=== PATIENT | male | born 2000 | race African-American/Black ===

== ENCOUNTER 2021-05-26 22:40 | Emergency (ER) | payer SELFPAY ==
[2021-05-26] MEDS ORDERED: Sodium Chloride 0.9% 1000 ML 1,000 ML IV STA (23:21)
--- NOTE | 2021-05-26 23:21 | ERPHSYRPT ---
- History of Present Illness Time Seen by Provider: 05/26/21 23:21 Source: patient Exam Limitations: no limitations Physician History: This is a 20-year-old -[place] male who presents with 2-day history of a sudden onset of cough cold congestion. He has no known exposure to anyone with known COVID-19 infection. He has no chest pain. He has mild shortness of breath with coughing episodes. He has some myalgias and arthralgias. He has no nausea vomiting or diarrhea. Timing/Duration: day(s) (2) Cough Quality/Degree: mild (To moderate), dry cough Possible Cause: no prior episodes Modifying Factors: Improves With: coughing Associated Symptoms: cough, muscle aches Allergies/Adverse Reactions: No Known Drug Allergies Allergy (Unverified 05/26/21 23:22) Travel Risk - International Travel Have you traveled outside of the country in past 3 weeks: No - Coronavirus Screening Are you exhibiting any of the following symptoms?: Yes Symptoms: Fever, Headaches/Body Aches/Fatigue Close contact with a COVID-19 positive Pt in past 14-21 Days: No - Review of Systems Constitutional: No Symptoms Eyes: No Symptoms Ears, Nose, & Throat: Nose Congestion, Throat Pain Respiratory: Cough Cardiac: No Symptoms, No Chest Pain Abdominal/Gastrointestinal: No Symptoms Genitourinary Symptoms: No Symptoms Musculoskeletal: No Symptoms, Arthralgias, Myalgias Skin: No Symptoms Neurological: No Symptoms Psychological: No Symptoms Endocrine: No Symptoms Hematologic/Lymphatic: No Symptoms Immunological/Allergic: No Symptoms All Other Systems: Reviewed and Negative - Past Medical History Pertinent Past Medical History: Yes - Past Surgical History Past Surgical History: Yes - Nursing Vital Signs Nursing Vital Signs: Initial Vital Signs Temperature 97.1 F 05/26/21 23:25 Pulse Rate 69 05/26/21 23:25 Respiratory Rate 20 05/26/21 23:25 Blood Pressure 124/85 05/26/21 23:25 O2 Sat by Pulse Oximetry 97 05/26/21 23:25 Pain Scale Pain Intensity 0 - Physical Exam General Appearance: no apparent distress, alert, anxiety, obese Eye Exam: PERRL/EOMI, eyes nml inspection Ears, Nose, Throat Exam: normal ENT inspection, moist mucous membranes Neck Exam: normal inspection, non-tender, supple, full range of motion Respiratory Exam: normal breath sounds, lungs clear, airway intact, No chest tenderness, No respiratory distress Cardiovascular Exam: regular rate/rhythm, normal heart sounds, normal peripheral pulses Gastrointestinal/Abdomen Exam: soft, normal bowel sounds, No tenderness Rectal Exam: not done Back Exam: normal inspection, normal range of motion, No CVA tenderness, No vertebral tenderness Extremity Exam: normal inspection, normal range of motion, pelvis stable Neurologic Exam: alert, oriented x 3, cooperative, 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 nml as tested, normal mood/affect, nml cerebellar function, nml station & gait, sensation nml Skin Exam: normal color, warm, dry Lymphatic Exam: No adenopathy SpO2 Interpretation: normal O2 Delivery: Room Air - Course Nursing assessment & vital signs reviewed: Yes Ordered Tests: Active Orders 24 hr Category Date Time Status Electronic Technologist STAT Care 05/26/21 23:22 Active EKG-ER Only STAT Care 05/26/21 23:21 Active IV Insertion STAT Care 05/26/21 23:21 Active Isolation, Initiate & Maintain STAT Care 05/26/21 23:22 Active CHEST 1 VIEW (PORTABLE) Stat Exams 05/26/21 23:22 Taken BLOOD CULTURE Stat Lab 05/26/21 23:45 Ordered CBC W DIFF Stat Lab 05/26/21 23:45 Completed CMP Stat Lab 05/26/21 23:45 Completed D-DIMER QUANTITATIVE Stat Lab 05/26/21 23:45 Completed Ferritin Stat Lab 05/26/21 23:45 Completed INFLUENZA A+B IJEOMA Stat Lab 05/26/21 23:22 Completed LDH-LACTATE DEHYDROGENASE Stat Lab 05/26/21 23:45 Completed Lactic Acid Stat Lab 05/26/21 23:36 Completed [place] Screen Stat Lab 05/26/21 23:45 Completed TROPONIN Q3H Lab 05/26/21 23:45 Completed TROPONIN Q3H Lab 05/27/21 02:30 Ordered TROPONIN Q3H Lab 05/27/21 05:30 Ordered TROPONIN Q3H Lab 05/27/21 08:30 Ordered TROPONIN Q3H Lab 05/27/21 11:30 Ordered UA W/RFX UR CULTURE Stat Lab 05/26/21 23:22 Ordered Medication Summary Discontinued Medications Generic Name Dose Route Start Last Admin Trade Name Freq PRN Reason Stop Dose Admin Methylprednisolone Sodium 0 mg 05/27/21 00:57 Succinate 125 mg/ Sterile IV 05/27/21 00:58 Water 2 ml STAT ONE Sodium Chloride 1,000 mls @ 999 mls/hr 05/26/21 23:21 Sodium Chloride 0.9% 1000 Ml IV 05/27/21 00:21 .Q1H1M STA Sodium Chloride Confirm 05/27/21 00:49 Sodium Chloride 0.9% 1000 Ml Administered 05/27/21 00:50 Dose 1,000 mls @ ud .ROUTE .STK-MED ONE Lab/Rad Data: Laboratory Result Diagrams 05/26/21 23:45 05/26/21 23:45 Laboratory Results 05/26/21 05/26/21 05/26/21 Range/Units 23:45 23:45 23:45 WBC (4.0-10.5) K/mm3 RBC (4.1-5.6) M/mm3 Hgb (12.5-18.0) gm/dl Hct (42-50) % MCV (78-100) fl MCH (26-32) pg MCHC (32-36) g/dl RDW (11.5-14.0) % Plt Count (150-450) K/mm3 MPV (7.5-11.0) fl Gran % (36.0-66.0) % Eos # (Auto) (0-0.5) Absolute Lymphs (auto) (1.0-4.6) Absolute Monos (auto) (0.0-1.3) Lymphocytes % (24.0-44.0) % Monocytes % (0.0-12.0) % Eosinophils % (0.00-5.0) % Basophils % (0.0-0.4) % Absolute Granulocytes (1.4-6.9) Basophils # (0-0.4) D-Dimer (215-500) ng/mL Sodium (137-145) mmol/L Potassium (3.5-5.1) mmol/L Chloride (98-107) mmol/L Carbon Dioxide (22-30) mmol/L Anion Gap (5-15) MEQ/L BUN (9-20) mg/dL Creatinine (0.66-1.25) mg/dL Estimated GFR ML/MIN Glucose (74-106) mg/dL Lactic Acid (0.4-2.0) Calcium (8.4-10.2) mg/dL Ferritin 64.0 (17.9-464) ng/mL Total Bilirubin (0.2-1.3) mg/dL AST (17-59) U/L ALT (0-50) U/L Alkaline Phosphatase (38-126) U/L Lactate Dehydrogenase (120-246) U/L Troponin I < 0.012 (0.000-0.034) ng/mL Serum Total Protein (6.3-8.2) g/dL Albumin (3.5-5.0) g/dL Monoscreen NEGATIVE (Negative) Influenza Type A Ag (NEGATIVE) Influenza Type B Ag (NEGATIVE) Group A Strep Antibody (NEGATIVE) 05/26/21 05/26/21 05/26/21 Range/Units 23:45 23:45 23:45 WBC 5.7 (4.0-10.5) K/mm3 RBC 5.14 (4.1-5.6) M/mm3 Hgb 15.0 (12.5-18.0) gm/dl Hct 44.9 (42-50) % MCV 87.4 (78-100) fl MCH 29.2 (26-32) pg MCHC 33.4 (32-36) g/dl RDW 14.4 H (11.5-14.0) % Plt Count 204 (150-450) K/mm3 MPV 11.1 H (7.5-11.0) fl Gran % 44.8 (36.0-66.0) % Eos # (Auto) 0.12 (0-0.5) Absolute Lymphs (auto) 1.95 (1.0-4.6) Absolute Monos (auto) 1.03 (0.0-1.3) Lymphocytes % 34.4 (24.0-44.0) % Monocytes % 18.2 H (0.0-12.0) % Eosinophils % 2.1 (0.00-5.0) % Basophils % 0.5 (0.0-0.4) % Absolute Granulocytes 2.54 (1.4-6.9) Basophils # 0.03 (0-0.4) D-Dimer 380 (215-500) ng/mL Sodium 135 L (137-145) mmol/L Potassium 3.8 (3.5-5.1) mmol/L Chloride 104 (98-107) mmol/L Carbon Dioxide 22 (22-30) mmol/L Anion Gap 12.8 (5-15) MEQ/L BUN 12 (9-20) mg/dL Creatinine 1.05 (0.66-1.25) mg/dL Estimated GFR > 60.0 ML/MIN Glucose 99 (74-106) mg/dL Lactic Acid (0.4-2.0) Calcium 9.2 (8.4-10.2) mg/dL Ferritin (17.9-464) ng/mL Total Bilirubin 0.60 (0.2-1.3) mg/dL AST 51 (17-59) U/L ALT 65 H (0-50) U/L Alkaline Phosphatase 71 (38-126) U/L Lactate Dehydrogenase 245 (120-246) U/L Troponin I (0.000-0.034) ng/mL Serum Total Protein 7.4 (6.3-8.2) g/dL Albumin 4.0 (3.5-5.0) g/dL Monoscreen (Negative) Influenza Type A Ag (NEGATIVE) Influenza Type B Ag (NEGATIVE) Group A Strep Antibody (NEGATIVE) 05/26/21 05/26/21 05/26/21 Range/Units 23:36 23:30 23:22 WBC (4.0-10.5) K/mm3 RBC (4.1-5.6) M/mm3 Hgb (12.5-18.0) gm/dl Hct (42-50) % MCV (78-100) fl MCH (26-32) pg MCHC (32-36) g/dl RDW (11.5-14.0) % Plt Count (150-450) K/mm3 MPV (7.5-11.0) fl Gran % (36.0-66.0) % Eos # (Auto) (0-0.5) Absolute Lymphs (auto) (1.0-4.6) Absolute Monos (auto) (0.0-1.3) Lymphocytes % (24.0-44.0) % Monocytes % (0.0-12.0) % Eosinophils % (0.00-5.0) % Basophils % (0.0-0.4) % Absolute Granulocytes (1.4-6.9) Basophils # (0-0.4) D-Dimer (215-500) ng/mL Sodium (137-145) mmol/L Potassium (3.5-5.1) mmol/L Chloride (98-107) mmol/L Carbon Dioxide (22-30) mmol/L Anion Gap (5-15) MEQ/L BUN (9-20) mg/dL Creatinine (0.66-1.25) mg/dL Estimated GFR ML/MIN Glucose (74-106) mg/dL Lactic Acid 1.0 (0.4-2.0) Calcium (8.4-10.2) mg/dL Ferritin (17.9-464) ng/mL Total Bilirubin (0.2-1.3) mg/dL AST (17-59) U/L ALT (0-50) U/L Alkaline Phosphatase (38-126) U/L Lactate Dehydrogenase (120-246) U/L Troponin I (0.000-0.034) ng/mL Serum Total Protein (6.3-8.2) g/dL Albumin (3.5-5.0) g/dL Monoscreen (Negative) Influenza Type A Ag NEGATIVE (NEGATIVE) Influenza Type B Ag NEGATIVE (NEGATIVE) Group A Strep Antibody NOT DETECTED (NEGATIVE) - Progress Progress: improved Air Movement: good Progress Note: 05/27/21 01:02 Chest x-ray shows no acute cardiopulmonary process. Blood Culture(s) Obtained: No Antibiotics given: No Counseled pt/family regarding: lab results, diagnosis, need for follow-up, rad results - Departure Departure Disposition: Home Clinical Impression: Viral illness Condition: Stable Critical Care Time: No Additional Instructions: Drink plenty of fluids. Quarantine yourself until you get the results of your COVID-19 test back. Take your medication as prescribed. Prescriptions: Hydrocodone/Acetaminophen [Hydrocodone-Acetamn 7.5-325/15] 10 ml PO Q8H PRN PRN #120 ml MDD 30 ml PRN Reason: Cough Prednisone 10 mg [Deltasone 10 mg] 10 mg PO TID #12 tablet
[2021-05-26 23:54] LABS: Absolute Neutrophil Ct (ANC) 2.54 (1.4-6.9); Basophil (Absolute #) 0.03 (0-0.4); Eosinophil % 2.1 % (0.00-5.0); Eosinophil (Absolute #) 0.12 (0-0.5); Hematocrit 44.9 % (42-50); Lymphocyte (Absolute #) 1.95 (1.0-4.6); Lymphocytes % 34.4 % (24.0-44.0); Mean Cell Volume 87.4 fl (78-100); Mean Corpuscular Hemoglobin 29.2 pg (26-32); Mean Corpuscular Hgb Concent. 33.4 g/dl (32-36); Mean Platelet Volume 11.1 fl (7.5-11.0); Monocyte (Absolute #) 1.03 (0.0-1.3); Monocytes % 18.2 % (0.0-12.0); Neutrophil % 44.8 % (36.0-66.0); Platelet Count 204 K/mm3 (150-450); Red Blood Count 5.14 M/mm3 (4.1-5.6); Red Cell Distribution Width 14.4 % (11.5-14.0); White Blood Count 5.7 K/mm3 (4.0-10.5)
[2021-05-27] LABS: ALKALINE PHOSPHATASE 71 U/L (38-126); ANION GAP 12.8 MEQ/L (5-15); BLOOD UREA NITROGEN 12 mg/dL (9-20); CHLORIDE 104 mmol/L (98-107); Calcium 9.2 mg/dL (8.4-10.2); Carbon Dioxide 22 mmol/L (22-30); Creatinine 1 1.05 mg/dL (0.66-1.25); EST GLOMERULAR FILTRATION RATE > 60.0 ML/MIN; Glucose 99 mg/dL (74-106); LDH-LACTATE DEHYDROGENASE 245 U/L (120-246); Potassium 3.8 mmol/L (3.5-5.1); SGOT/AST 51 U/L (17-59); SGPT/ALT 65 U/L (0-50); SODIUM 135 mmol/L (137-145); Total Protein 7.4 g/dL (6.3-8.2)
[2021-05-27 00:08] LABS: INFLUENZA A NEGATIVE (NEGATIVE); INFLUENZA B NEGATIVE (NEGATIVE)
[2021-05-27] MEDS ORDERED: Sodium Chloride 0.9% 1000 ML 0 ML ONE (00:49)
[2021-05-27 00:56] VITALS: O2SAT 98
[2021-05-27] MEDS ORDERED: solu-MEDROL 125 MG, Sterile H2O 10 ml 2 ML IV ONE ×2 (00:57)
[2021-05-27] MEDS ORDERED: HYDROCODONE-ACETAMIN 2.5-108/5 ML SOLUTION PO STA (00:58)
[2021-05-27] MEDS ORDERED: solu-MEDROL ONE (00:58)
[2021-05-27] MEDS ORDERED: Sodium Chloride 0.9% 1000 ML 1,000 ML ONE (00:58)
[2021-05-27] MEDS ORDERED: HYDROCODONE-ACETAMIN 2.5-108/5 ML SOLUTION ONE (01:42)
[2021-05-27 02:16] VITALS: BP 142/94; PULSE 76
--- NOTE | 2021-05-27 08:49 | XRAY ---
Indication: Fever and cough. Comparison: None Portable apical lordotic chest demonstrates normal heart, lungs, and bony thorax.
== END 2021-05-27 02:16 | disposition home or self-care (01) ==
LOC: ED 22:40
DX: B34.9 Viral infection, unspecified (principal); R05.9 Cough, unspecified; R09.81 Nasal congestion; R06.02 Shortness of breath; M79.10 Myalgia, unspecified site; Z79.891 Long term (current) use of opiate analgesic; Z79.52 Long term (current) use of systemic steroids
CPT/HCPCS: 36000; 36415; 71045; 80053; 82728; 83605; 83615; 84484; 85025; 85379; 86308; 87040; 87400; 87651; 93005; 93041; 96374; 99284; U0003; J2930; A9270-GY

== ENCOUNTER 2023-03-03 20:11 | Observation (INO) | payer OTHER ==
[2023-03-03] MEDS ORDERED: solu-MEDROL 125 MG, Sterile H2O 10 ml 2 ML IV ONE ×2 (20:18)
[2023-03-03] MEDS ORDERED: BRETHINE 1 MG/ML SQ ONE (20:18)
[2023-03-03] MEDS ORDERED: DUONEB 0.5-3 MG/3 ml Neb IH ONE (20:20)
[2023-03-03] MEDS ORDERED: Magnesium 1 Gm / 100 Ml D5W*** 100 ML IV ONE ×2 (20:31→21:20)
[2023-03-03] MEDS ORDERED: solu-MEDROL ONE (20:31)
[2023-03-03] MEDS ORDERED: Sterile H2O 10 ml IJ ONE (20:31)
[2023-03-03] MEDS ORDERED: BRETHINE 1 MG/ML ONE (20:31)
[2023-03-03] MEDS: Magnesium 1 Gm / 100 Ml D5W*** 100 ML IV SCH ×2 (20:33→21:21)
--- NOTE | 2023-03-03 20:36 | ERPHSYRPT ---
- History of Present Illness Time Seen by Provider: 03/03/23 20:25 Source: patient Exam Limitations: no limitations Patient Subjective Stated Complaint: pt has hx of asthma, pt has been having episodes of shortness of breath for the past month but tonight within the last h our pt become extremely short of breath per fiance Triage Nursing Assessment: pt ambulatory to bed by self, pt alert and oriented x3, skin color appropriate for race, warm, and diaphoretic, pt RR was around 32 and O2 sat was 89-90% on RA, pt has hx of asthma, pt does not having nebulizers or inhalers at home. Physician History: Patient is a 22-year-old -[place] male presents to our ED for evaluation of shortness of breath. Due to patient's condition HPI is provided by his significant other. She reports patient has a history of asthma. Patient symptoms started approximately 3 weeks ago. Symptoms have gotten worse over the past day. Patient does not have a rescue inhaler at home. He does not have a primary care doctor. No other significant past medical history. Symptoms have been rapidly progressive over the past day. No specific worsening or improving factors. No associated chest pain. No nausea vomiting or diaphoresis. No fever. No rash. Significant other voices no other complaints or concerns at this time. Portions of this note were created with voice recognition technology. There may be grammatical, spelling, punctuation or sound alike errors Timing/Duration: week(s) (3 weeks) Activities at Onset: none Severity of Dyspnea-Max: severe Severity of Dyspnea-Current: moderate Possible Cause: unknown cause Modifying Factors: Improves With: nothing Associated Symptoms: wheezing Allergies/Adverse Reactions: No Known Drug Allergies Allergy (Verified 03/03/23 20:13) Home Medications: No Reportable Medications [No Reported Medications] 03/03/23 [History] Hx Tetanus, Diphtheria Vaccination/Date Given: Yes Hx Influenza Vaccination/Date Given: No Hx Pneumococcal Vaccination/Date Given: No Immunizations Up to Date: No Travel Risk - International Travel Have you traveled outside of the country in past 3 weeks: No - Coronavirus Screening Are you exhibiting any of the following symptoms?: No Close contact with a COVID-19 positive Pt in past 14-21 Days: No - Vaccine Status Have you recieved a Covid-19 vaccination: No - Review of Systems Constitutional: No Symptoms, No Fever, No Chills Eyes: No Symptoms Ears, Nose, & Throat: No Symptoms Respiratory: No Symptoms, No Cough, No Dyspnea Cardiac: No Symptoms, No Chest Pain, No Edema, No Syncope Abdominal/Gastrointestinal: No Symptoms, No Abdominal Pain, No Nausea, No Vomiting, No Diarrhea Genitourinary Symptoms: No Symptoms, No Dysuria Musculoskeletal: No Symptoms, No Back Pain, No Neck Pain Skin: No Symptoms, No Rash Neurological: No Symptoms, No Dizziness, No Focal Weakness, No Sensory Changes Psychological: No Symptoms Endocrine: No Symptoms Hematologic/Lymphatic: No Symptoms Immunological/Allergic: No Symptoms All Other Systems: Reviewed and Negative - Past Medical History Pertinent Past Medical History: Yes Neurological History: No Pertinent History ENT History: No Pertinent History Cardiac History: No Pertinent History Respiratory History: Asthma Endocrine Medical History: No Pertinent History Musculoskeletal History: No Pertinent History GI Medical History: No Pertinent History History: No Pertinent History Psycho-Social History: No Pertinent History Male Reproductive Disorders: No Pertinent History - Past Surgical History Past Surgical History: No - Social History Smoking Status: Current every day smoker How long have you smoked: 2 years Exposure to second hand smoke: No Drug Use: marijuana Patient Lives Alone: No - Nursing Vital Signs Nursing Vital Signs: Initial Vital Signs Pulse Rate 122 H 03/03/23 20:11 Respiratory Rate 13 03/03/23 20:11 Blood Pressure 177/122 03/03/23 20:11 O2 Sat by Pulse Oximetry 94 L 03/03/23 20:11 Pain Scale Pain Intensity 2 - Physical Exam General Appearance: no apparent distress, alert Eye Exam: PERRL/EOMI, eyes nml inspection Ears, Nose, Throat Exam: hearing grossly normal, normal ENT inspection, normal pharynx Neck Exam: normal inspection, supple Respiratory Exam: respiratory distress, diminished breath sounds, accessory muscle use, wheezing, other (Tachypneic) Cardiovascular/Chest Exam: normal heart sounds, regular rate/rhythm Abdominal/Gastrointestinal Exam: soft, No tenderness, No distention, No mass Extremity Exam: non-tender, normal range of motion, normal inspection, no calf tenderness, no pedal edema Peripheral Pulses Exam: dorsalis-pedis (R): 2+, dorsalis-pedis (L): 2+ Neurologic Exam: alert, oriented x 3, cooperative, 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 nml as tested, sensation nml, No motor deficits Skin Exam: normal color, warm, No dry Lymphatic Exam: No adenopathy SpO2 Interpretation: normal SpO2: 95 O2 Delivery: Room Air - Course Nursing assessment & vital signs reviewed: Yes EKG Interpreted by Me: RATE (121), Sinus Tach, NORMAL AXIS, NORMAL INTERVALS - Radiology Exams Chest X-ray Interpretation: Interpreted by me (No acute findings) Ordered Tests: Active Orders 24 hr Category Date Time Status Volunteer Coordinator STAT Care 03/03/23 20:19 Active EKG-ER Only STAT Care 03/03/23 20:18 Active IV Insertion STAT Care 03/03/23 20:18 Active Pulse Oximetry (ED) STAT Care 03/03/23 20:18 Active CHEST 1 VIEW (PORTABLE) Stat Exams 03/03/23 21:11 Taken CBC W DIFF Stat Lab 03/03/23 20:35 Completed CMP Stat Lab 03/03/23 20:35 Completed D-DIMER QUANTITATIVE Stat Lab 03/03/23 20:35 Completed NT PRO BNPII Stat Lab 03/03/23 20:35 Completed TROPONIN Q4H Lab 03/03/23 20:35 Completed TROPONIN Q4H Lab 03/04/23 00:30 Ordered TROPONIN Q4H Lab 03/04/23 04:30 Ordered Respiratory Therapy Assessment DAILY RT 03/03/23 20:36 Active Medication Summary Generic Name Dose Route Start Last Admin Trade Name Freq PRN Reason Stop Dose Admin Albuterol Sulfate 7.5 mg 03/03/23 20:45 03/03/23 20:37 Albuterol Solution 2.5 Mg/0.5 Ml Ud Solution IH 04/02/23 20:44 7.5 mg UD MARYLIN Administration Magnesium Sulfate/Dextrose 100 mls @ 100 mls/hr 03/03/23 20:30 03/03/23 21:21 Magnesium 1 Gm / 100 Ml D5w IV 03/03/23 22:29 100 mls/hr Q1H M[place] Administration Discontinued Medications Generic Name Dose Route Start Last Admin Trade Name Freq PRN Reason Stop Dose Admin Albuterol/Ipratropium 3 ml 03/03/23 20:20 03/03/23 20:36 Ipratropium/Albuterol Sulfate 3 Ml Ampul.Neb IH 03/03/23 20:21 3 ml STAT ONE Administration Methylprednisolone Sodium 0 mg 03/03/23 20:18 03/03/23 20:32 Succinate 125 mg/ Sterile IV 03/03/23 20:19 125 mg Water 2 ml STAT ONE Administration Methylprednisolone Sodium Succinate Confirm 03/03/23 20:31 Methylprednis Sod Succ 125 Mg/2 Ml Vial Administered 03/03/23 20:32 Dose 125 mg .ROUTE .STK-MED ONE Sterile Water Confirm 03/03/23 20:31 Water For Injection,Sterile 10 Ml Vial Administered 03/03/23 20:32 Dose 10 ml IJ .STK-MED ONE Terbutaline Sulfate 0.25 mg 03/03/23 20:18 03/03/23 20:32 Terbutaline Sulfate 1 Mg/Ml Vial SQ 03/03/23 20:19 0.25 mg STAT ONE Administration Terbutaline Sulfate Confirm 03/03/23 20:31 Terbutaline Sulfate 1 Mg/Ml Vial Administered 03/03/23 20:32 Dose 1 mg .ROUTE .STK-MED ONE Lab/Rad Data: Laboratory Result Diagrams 03/03/23 20:35 03/03/23 20:35 Laboratory Results 03/03/23 03/03/23 03/03/23 Range/Units 20:37 20:35 20:35 WBC (4.0-10.5) x10^3/uL RBC (4.1-5.6) x10^6/uL Hgb (12.5-18.0) g/dL Hct (42-50) % MCV (78-100) fL MCH (26-32) pg MCHC (32-36) g/dL RDW (11.5-14.0) % Plt Count (150-450) x10^3/uL MPV (7.5-11.0) fL Gran % (36.0-66.0) % Immature Gran % (Auto) (0.00-0.4) % Nucleat RBC Rel Count (0.00-0.1) % Eos # (Auto) (0-0.5) x10^3/uL Immature Gran # (Auto) (0.00-0.03) x10^3u/L Absolute Lymphs (auto) (1.0-4.6) x10^3/uL Absolute Monos (auto) (0.0-1.3) x10^3/uL Absolute Nucleated RBC (0.00-0.01) x10^3u/L Lymphocytes % (24.0-44.0) % Monocytes % (0.0-12.0) % Eosinophils % (0.00-5.0) % Basophils % (0.0-0.4) % Absolute Granulocytes (1.4-6.9) x10^3/uL Basophils # (0-0.4) x10^3/uL D-Dimer 0.22 (0.0-0.50) mg/L Sodium (137-145) mmol/L Potassium (3.5-5.1) mmol/L Chloride (98-107) mmol/L Carbon Dioxide (22-30) mmol/L Anion Gap (5-15) MEQ/L BUN (9-20) mg/dL Creatinine (0.66-1.25) mg/dL Estimated GFR ML/MIN Glucose (74-106) mg/dL Calcium (8.4-10.2) mg/dL Total Bilirubin (0.2-1.3) mg/dL AST (17-59) U/L ALT (0-50) U/L Alkaline Phosphatase (38-126) U/L Troponin I < 0.012 (0.000-0.034) ng/mL NT-Pro-B Natriuret Pep (<300) pg/mL Serum Total Protein (6.3-8.2) g/dL Albumin (3.5-5.0) g/dL Influenza Type A Ag NEGATIVE (NEGATIVE) Influenza Type B Ag NEGATIVE (NEGATIVE) RSV (PCR) NEGATIVE (NEGATIVE) SARS-CoV-2 (PCR) NEGATIVE (NEGATIVE) Slides for Path Review 03/03/23 03/03/23 Range/Units 20:35 20:35 WBC 12.0 H (4.0-10.5) x10^3/uL RBC 5.70 H (4.1-5.6) x10^6/uL Hgb 16.9 (12.5-18.0) g/dL Hct 49.8 (42-50) % MCV 87.4 (78-100) fL MCH 29.6 (26-32) pg MCHC 33.9 (32-36) g/dL RDW 13.2 (11.5-14.0) % Plt Count 279 (150-450) x10^3/uL MPV 11.6 H (7.5-11.0) fL Gran % 39.7 (36.0-66.0) % Immature Gran % (Auto) 0.1 (0.00-0.4) % Nucleat RBC Rel Count 0.0 (0.00-0.1) % Eos # (Auto) 0.40 (0-0.5) x10^3/uL Immature Gran # (Auto) 0.01 (0.00-0.03) x10^3u/L Absolute Lymphs (auto) 5.92 H (1.0-4.6) x10^3/uL Absolute Monos (auto) 0.87 (0.0-1.3) x10^3/uL Absolute Nucleated RBC 0.00 (0.00-0.01) x10^3u/L Lymphocytes % 49.2 H (24.0-44.0) % Monocytes % 7.2 (0.0-12.0) % Eosinophils % 3.3 (0.00-5.0) % Basophils % 0.5 (0.0-0.4) % Absolute Granulocytes 4.78 (1.4-6.9) x10^3/uL Basophils # 0.06 (0-0.4) x10^3/uL D-Dimer (0.0-0.50) mg/L Sodium 145 (137-145) mmol/L Potassium 3.6 (3.5-5.1) mmol/L Chloride 106 (98-107) mmol/L Carbon Dioxide 28 (22-30) mmol/L Anion Gap 15.6 H (5-15) MEQ/L BUN 12 (9-20) mg/dL Creatinine 1.08 (0.66-1.25) mg/dL Estimated GFR > 60.0 ML/MIN Glucose 110 H (74-106) mg/dL Calcium 9.1 (8.4-10.2) mg/dL Total Bilirubin 0.40 (0.2-1.3) mg/dL AST 46 (17-59) U/L ALT 65 H (0-50) U/L Alkaline Phosphatase 99 (38-126) U/L Troponin I (0.000-0.034) ng/mL NT-Pro-B Natriuret Pep < 20.0 (<300) pg/mL Serum Total Protein 9.1 H (6.3-8.2) g/dL Albumin 4.7 (3.5-5.0) g/dL Influenza Type A Ag (NEGATIVE) Influenza Type B Ag (NEGATIVE) RSV (PCR) (NEGATIVE) SARS-CoV-2 (PCR) (NEGATIVE) Slides for Path Review YES - Progress Progress: improved Air Movement: fair Progress Note: Patient is a 22-year-old male history of asthma presents to our ED with severe asthma exacerbation. Patient was in respiratory distress upon arrival to our ED. Patient's significant other at bedside served as the primary historian due to patient's acute medical condition. Significant other advised patient does not have a primary care doctor. Patient has been out of his rescue inhaler for some time. Patient's symptoms began over a week ago. Symptoms have gotten p rogressively worse but acutely worse over the past day. Patient is otherwise healthy. No significant past medical history. Patient has a BMI of 44.8. Patient reassessed. Symptoms significantly improved. Patient breathing easier with nasal cannula oxygen. Patient ambulated in our ED. Patient became short of breath. Oxygen saturation during exertion dropped from 97% at rest to 88%. The decision was made to admit patient. EKG normal sinus rhythm. Chest x-ray shows no acute findings. CBC reveals a mild leukocytosis of 12. However no fever. No nidus of infection observed on any of our studies or during physical exam. CMP within normal limits. D-dimer negative. COVID test negative. Troponin negative. Patient received hour-long albuterol nebulizer treatment. 2 g of magnesium infused. 125 mg Solu-Medrol administered. 0.25 mg terbutaline subcu administered as well. Although patient has shown significant improvement during the course of his ED visit he is not ready for discharge. Patient will require admission for further evaluation and treatment. Case discussed with Dr. Rosenberg hospitalist who accepts admission at 11:41 PM. Plan of care discussed with patient. He agrees to admission at [facility] for further evaluation and treatment. Portions of this note were created with voice recognition technology. There may be grammatical, spelling, punctuation or sound alike errors Complexity of problems addressed as moderate acute complicated COPA (number of complexity of problem addressed) Minimal, Straight forward, one self limited or minor problem Low. Acute uncomplicated stable +/- admission, Any acute or chronic illness, 2 or more self-limited or minor problems. Moderate. Acute, complicated or with systemic illness. Chronic illness with exacerbation, New diagnosis with uncertain prognosis. 2 or more chronic stable illnesses. High. Any severe exacerbation or threat to bodily function, Any treatment side effects Critical care time is approximately 1 hour. Patient arrived to our ED in respiratory distress. Patient was using accessory muscles of respiration. Patient was tachypneic. Rapid shallow breathing. Diminished breath sounds patient required emergent management including immediate beta-[address]/albuterol nebulizer therapy. Immediate management indicated to prevent further deterioration. Complex of data reviewed and analyzed is extensive. Patient's significant other served as the primary historian. Plan of care and management discussed with Dr. Rosenberg. Test ordered test reviewed and analyzed. Clinical correlation made between findings of imaging study and laboratory studies at history and physical exam. Risk complication or risk of morbidity/mortality of patient management is high. Patient received a nebulizer treatment. Patient will require hospitalization for further evaluation and treatment. Vital stable. Diagnosis respiratory distress, severe asthma exacerbation. Time spent admit patient is approximately 15 minutes. Plan of care established for shared decision making. 03/03/23 23:52 03/04/23 00:02 Blood Culture(s) Obtained: No Antibiotics given: No Discussed with : Rosie (Spoke to Dr. Rosenberg at 11:[address] Rosenberg accepts admission observation) Counseled pt/family regarding: lab results, diagnosis, rad results - Departure Departure Disposition: Observation Clinical Impression: Severe asthma with exacerbation, Respiratory distress, Exertional hypoxia Condition: Stable Critical Care Time: Yes Critical Care Time(excluding separately billable procedures): Critical 30-74 mins Referrals: DOCTOR,NO FAMILY [Primary Care Provider] - Follow up/PCP as directed
[2023-03-03 20:39] LABS: Absolute Neutrophil Ct (ANC) 4.78 x10^3/uL (1.4-6.9); BASOPHIL % 0.5 % (0.0-0.4); Basophil (Absolute #) 0.06 x10^3/uL (0-0.4); Eosinophil % 3.3 % (0.00-5.0); Hematocrit 49.8 % (42-50); Hemoglobin 16.9 g/dL (12.5-18.0); IMMATURE GRAN # 0.01 x10^3u/L (0.00-0.03); IMMATURE GRAN % 0.1 % (0.00-0.4); Lymphocyte (Absolute #) 5.92 x10^3/uL (1.0-4.6); Lymphocytes % 49.2 % (24.0-44.0); Mean Cell Volume 87.4 fL (78-100); Mean Corpuscular Hemoglobin 29.6 pg (26-32); Mean Corpuscular Hgb Concent. 33.9 g/dL (32-36); Mean Platelet Volume 11.6 fL (7.5-11.0); Monocyte (Absolute #) 0.87 x10^3/uL (0.0-1.3); Monocytes % 7.2 % (0.0-12.0); Neutrophil % 39.7 % (36.0-66.0); Platelet Count 279 x10^3/uL (150-450); Red Cell Distribution Width 13.2 % (11.5-14.0)
[2023-03-03] MEDS ORDERED: PROVENTIL Solution 2.5 MG/0.5 ML IH SCH (20:45)
[2023-03-03 21:04] LABS: ALBUMIN 4.7 g/dL (3.5-5.0); ALKALINE PHOSPHATASE 99 U/L (38-126); ANION GAP 15.6 MEQ/L (5-15); BLOOD UREA NITROGEN 12 mg/dL (9-20); CHLORIDE 106 mmol/L (98-107); Calcium 9.1 mg/dL (8.4-10.2); Carbon Dioxide 28 mmol/L (22-30); Creatinine 1 1.08 mg/dL (0.66-1.25); EST GLOMERULAR FILTRATION RATE > 60.0 ML/MIN; Glucose 110 mg/dL (74-106); NT PRO BNPII < 20.0 pg/mL (<300); Potassium 3.6 mmol/L (3.5-5.1); SGOT/AST 46 U/L (17-59); SGPT/ALT 65 U/L (0-50); SODIUM 145 mmol/L (137-145); Total Protein 9.1 g/dL (6.3-8.2)
[2023-03-03 21:17] LABS: INFLUENZA A NEGATIVE (NEGATIVE); INFLUENZA B NEGATIVE (NEGATIVE); RESPIRATORY SYNCTIAL VIRUS NEGATIVE (NEGATIVE); SARS-CoV-2 Xpert Express NEGATIVE (NEGATIVE)
[2023-03-03 22:13] LABS: Slide Review 1 YES
--- NOTE | 2023-03-04 00:15 | PCM.HP ---
History of Present Illness - Chief Complaint Chief Complaint: SOB, asthma exacerbation History of Present Illness: is a 22 year old male with a history of asthma but not on any home medication and no PCP here with worsening SOB that has progressed over the past 3 weeks to this point. He does not have rescue inhaler at home. Prior to 3 weeks ago, he has had some SOB here and there, but nothing to this degree. In ER, O2 sat on RA was high 80s. After a few nebs treatments, walk test still shows O2 sat < 90% and pt still wheezing and SOB. Thus he will come in for asthma exacerbation. CXR is clear. Denies any fever, chills, sputum, hemoptysis, chest pain, nausea, vomiting nor diarrhea. No syncope He vapes. His fiance, Denae, is with him. - Review of Systems Constitutional: No Symptoms Eyes: No Symptoms Ears, Nose, & Throat: No Symptoms Respiratory: Short Of Breath, Wheezing Cardiac: No Symptoms Abdominal/Gastrointestinal: No Symptoms Genitourinary Symptoms: No Symptoms Musculoskeletal: No Symptoms Skin: No Symptoms Neurological: No Symptoms Psychological: No Symptoms Endocrine: No Symptoms Hematologic/Lymphatic: No Symptoms Immunological/Allergic: No Symptoms Medications & Allergies Home Medications: Home Medication List No Reportable Medications [No Reported Medications] 03/03/23 [History Confirmed 03/03/23] Allergies/Adverse Reactions: Allergies Allergy/AdvReac Type Severity Reaction Status Date / Time No Known Drug Allergies Allergy Verified 03/03/23 20:13 - Past Medical History Past Medical History: Yes Neurological History: No Pertinent History ENT History: No Pertinent History Cardiac History: No Pertinent History Respiratory History: Asthma Endocrine Medical History: No Pertinent History Musculoskelatal History: No Pertinent History GI Medical History: No Pertinent History History: No Pertinent History Pyscho-Social History: No Pertinent History Male Reproductive Disorders: No Pertinent History - Past Surgical History Past Surgical History: No - Social History Smoking Status: Current every day smoker How long have you smoked: 2 years Exposure to second hand smoke: No Alcohol: None Drug Use: marijuana - Physical Exam Vital Signs: Vital Signs - 24 hr Temp Pulse Resp BP BP Pulse Ox 03/04/23 00:06 95 03/03/23 23:00 103 H 24 135/91 92 L 03/03/23 22:30 102 H 24 128/95 93 L 03/03/23 22:28 106 H 13 125/90 97 03/03/23 22:27 103 H 20 93 L 03/03/23 22:20 107 H 0 L 89 L 03/03/23 22:10 112 H 7 L 90 L 03/03/23 22:00 108 H 17 90 L 03/03/23 21:50 112 H 15 91 L 03/03/23 21:40 112 H 17 128/95 93 L 03/03/23 21:30 106 H 0 L 93 L 03/03/23 21:20 108 H 11 L 92 L 03/03/23 21:12 105 H 16 92 L 03/03/23 21:10 112 H 8 L 94 L 03/03/23 21:02 123 H 13 94 L 03/03/23 20:37 124 H 32 H 89 L 03/03/23 20:26 28 H 95 03/03/23 20:18 97.6 F 118 H 32 H 177/122 89 L 03/03/23 20:11 122 H 13 177/122 94 L General Appearance: mild distress, anxiety Neurologic Exam: alert, oriented x 3, cooperative Eye Exam: PERRL/EOMI, eyes nml inspection Ears, Nose, Throat Exam: normal ENT inspection Neck Exam: normal inspection, non-tender, supple, full range of motion Respiratory Exam: diminished breath sounds, accessory muscle use, wheezing Cardiovascular Exam: regular rate/rhythm, normal heart sounds Gastrointestinal/Abdomen Exam: normal bowel sounds Rectal Exam: deferred Back Exam: normal inspection Extremity Exam: normal inspection, normal range of motion Skin Exam: normal color, warm, dry Results - Labs Lab/Micro Results: Lab Results-Last 24 Hours 03/03/23 03/03/23 03/03/23 Range/Units 20:35 20:35 20:35 WBC 12.0 H (4.0-10.5) x10^3/uL RBC 5.70 H (4.1-5.6) x10^6/uL Hgb 16.9 (12.5-18.0) g/dL Hct 49.8 (42-50) % MCV 87.4 (78-100) fL MCH 29.6 (26-32) pg MCHC 33.9 (32-36) g/dL RDW 13.2 (11.5-14.0) % Plt Count 279 (150-450) x10^3/uL MPV 11.6 H (7.5-11.0) fL Gran % 39.7 (36.0-66.0) % Immature Gran % (Auto) 0.1 (0.00-0.4) % Nucleat RBC Rel Count 0.0 (0.00-0.1) % Eos # (Auto) 0.40 (0-0.5) x10^3/uL Immature Gran # (Auto) 0.01 (0.00-0.03) x10^3u/L Absolute Lymphs (auto) 5.92 H (1.0-4.6) x10^3/uL Absolute Monos (auto) 0.87 (0.0-1.3) x10^3/uL Absolute Nucleated RBC 0.00 (0.00-0.01) x10^3u/L Lymphocytes % 49.2 H (24.0-44.0) % Monocytes % 7.2 (0.0-12.0) % Eosinophils % 3.3 (0.00-5.0) % Basophils % 0.5 (0.0-0.4) % Absolute Granulocytes 4.78 (1.4-6.9) x10^3/uL Basophils # 0.06 (0-0.4) x10^3/uL D-Dimer 0.22 (0.0-0.50) mg/L Sodium 145 (137-145) mmol/L Potassium 3.6 (3.5-5.1) mmol/L Chloride 106 (98-107) mmol/L Carbon Dioxide 28 (22-30) mmol/L Anion Gap 15.6 H (5-15) MEQ/L BUN 12 (9-20) mg/dL Creatinine 1.08 (0.66-1.25) mg/dL Estimated GFR > 60.0 ML/MIN Glucose 110 H (74-106) mg/dL Calcium 9.1 (8.4-10.2) mg/dL Total Bilirubin 0.40 (0.2-1.3) mg/dL AST 46 (17-59) U/L ALT 65 H (0-50) U/L Alkaline Phosphatase 99 (38-126) U/L Troponin I (0.000-0.034) ng/mL NT-Pro-B Natriuret Pep < 20.0 (<300) pg/mL Serum Total Protein 9.1 H (6.3-8.2) g/dL Albumin 4.7 (3.5-5.0) g/dL Influenza Type A Ag (NEGATIVE) Influenza Type B Ag (NEGATIVE) RSV (PCR) (NEGATIVE) SARS-CoV-2 (PCR) (NEGATIVE) Slides for Path Review YES 03/03/23 03/03/23 Range/Units 20:35 20:37 WBC (4.0-10.5) x10^3/uL RBC (4.1-5.6) x10^6/uL Hgb (12.5-18.0) g/dL Hct (42-50) % MCV (78-100) fL MCH (26-32) pg MCHC (32-36) g/dL RDW (11.5-14.0) % Plt Count (150-450) x10^3/uL MPV (7.5-11.0) fL Gran % (36.0-66.0) % Immature Gran % (Auto) (0.00-0.4) % Nucleat RBC Rel Count (0.00-0.1) % Eos # (Auto) (0-0.5) x10^3/uL Immature Gran # (Auto) (0.00-0.03) x10^3u/L Absolute Lymphs (auto) (1.0-4.6) x10^3/uL Absolute Monos (auto) (0.0-1.3) x10^3/uL Absolute Nucleated RBC (0.00-0.01) x10^3u/L Lymphocytes % (24.0-44.0) % Monocytes % (0.0-12.0) % Eosinophils % (0.00-5.0) % Basophils % (0.0-0.4) % Absolute Granulocytes (1.4-6.9) x10^3/uL Basophils # (0-0.4) x10^3/uL D-Dimer (0.0-0.50) mg/L Sodium (137-145) mmol/L Potassium (3.5-5.1) mmol/L Chloride (98-107) mmol/L Carbon Dioxide (22-30) mmol/L Anion Gap (5-15) MEQ/L BUN (9-20) mg/dL Creatinine (0.66-1.25) mg/dL Estimated GFR ML/MIN Glucose (74-106) mg/dL Calcium (8.4-10.2) mg/dL Total Bilirubin (0.2-1.3) mg/dL AST (17-59) U/L ALT (0-50) U/L Alkaline Phosphatase (38-126) U/L Troponin I < 0.012 (0.000-0.034) ng/mL NT-Pro-B Natriuret Pep (<300) pg/mL Serum Total Protein (6.3-8.2) g/dL Albumin (3.5-5.0) g/dL Influenza Type A Ag NEGATIVE (NEGATIVE) Influenza Type B Ag NEGATIVE (NEGATIVE) RSV (PCR) NEGATIVE (NEGATIVE) SARS-CoV-2 (PCR) NEGATIVE (NEGATIVE) Slides for Path Review - Radiology Impressions Radiology Exams & Impressions: Radiology Procedures Category Date Time Status CHEST 1 VIEW (PORTABLE) Stat Exams 03/03/23 21:11 Taken - Other Procedures and Tests Respiratory Therapy 03/03/23 20:36 Respiratory Therapy Assessment DAILY Assessment/Plan (1) Acute respiratory failure with hypoxia Current Visit: Yes Status: Acute Assessment & Plan: Due to asthma exacerbation. All work-up unremarkable. CXR clear. BNP normal. He is getting treatment for asthma Code(s): J96.01 - ACUTE RESPIRATORY FAILURE WITH HYPOXIA (2) Severe asthma with exacerbation Current Visit: Yes Status: Acute Assessment & Plan: He has not been getting regular follow-up or treatments, so this will be treated as new onset asthma/asthma exacerbation without any current home meds. Plan for solu-medrol, nebs and O2 protocol. Will monitor progress. Once ready for DC, he will need RX for albuterol INH and PCP to follow-up Code(s): J45.901 - UNSPECIFIED ASTHMA WITH (ACUTE) EXACERBATION (3) Leukocytosis Current Visit: Yes Status: Acute Assessment & Plan: WBC 12. No obvious source of infection. Flu and COVID negative. Could be due to stress from asthma exacerbation. Will trend Code(s): D72.829 - ELEVATED WHITE BLOOD CELL COUNT, UNSPECIFIED Telemedicine Encounter - Telemedicine Encounter Telemedicine Encounter: The entirety of this encounter was performed via Telemedicine" Pt gave me verbal consent to have this telemedicine visit
[2023-03-04] MEDS ORDERED: Zofran 4 MG/2 ML VIAL IV PRN (00:18)
[2023-03-04] MEDS ORDERED: TYLENOL 325 MG PO PRN (00:18)
[2023-03-04 05:02] LABS: Absolute Neutrophil Ct (ANC) 8.43 x10^3/uL (1.4-6.9); BASOPHIL % 0.2 % (0.0-0.4); Basophil (Absolute #) 0.02 x10^3/uL (0-0.4); Eosinophil % 0.1 % (0.00-5.0); Eosinophil (Absolute #) 0.01 x10^3/uL (0-0.5); Hematocrit 45.5 % (42-50); Hemoglobin 15.7 g/dL (12.5-18.0); IMMATURE GRAN # 0.02 x10^3u/L (0.00-0.03); IMMATURE GRAN % 0.2 % (0.00-0.4); Lymphocyte (Absolute #) 1.21 x10^3/uL (1.0-4.6); Lymphocytes % 12.4 % (24.0-44.0); Mean Cell Volume 86.2 fL (78-100); Mean Corpuscular Hemoglobin 29.7 pg (26-32); Mean Corpuscular Hgb Concent. 34.5 g/dL (32-36); Mean Platelet Volume 11.8 fL (7.5-11.0); Monocyte (Absolute #) 0.06 x10^3/uL (0.0-1.3); Monocytes % 0.6 % (0.0-12.0); Neutrophil % 86.5 % (36.0-66.0); Platelet Count 251 x10^3/uL (150-450); Red Blood Count 5.28 x10^6/uL (4.1-5.6); Red Cell Distribution Width 13.2 % (11.5-14.0); White Blood Count 9.8 x10^3/uL (4.0-10.5)
[2023-03-04] MEDS: DUONEB 0.5-3 MG/3 ml Neb IH SCH ×2 (05:11→09:14)
[2023-03-04] MEDS ORDERED: solu-MEDROL 125 MG, Sterile H2O 10 ml 2 ML IV SCH ×2 (06:00)
[2023-03-04] MEDS ORDERED: solu-MEDROL ONE (06:39)
[2023-03-04] MEDS ORDERED: Sterile H2O 10 ml IJ ONE (06:40)
--- NOTE | 2023-03-04 08:49 | XRAY ---
Indication: Short of breath. Comparison: May 26, 2021 Portable chest again demonstrates normal heart, lungs, and bony thorax.
[2023-03-04] MEDS ORDERED: ENOXAPARIN SODIUM SQ SCH (10:00)
--- NOTE | 2023-03-04 11:38 | PCM.DS ---
Discharge Summary Date of Admission: 03/04/23 00:05 Date of Discharge: 03/04/23 Admitting Physician: SANDHYA RIOS DO Primary Care Provider: NO FAMILY DOCTOR Allergies Allergies No Known Drug Allergies Allergy (Verified 03/03/23 20:13) Hospital Summary - Hospital Course Hospital Course: 03/03/23 is a 22 year old male with a history of asthma but not on any home medication and no PCP here with worsening SOB that has progressed over the past 3 weeks to this point. He does not have rescue inhaler at home. Prior to 3 weeks ago, he has had some SOB here and there, but nothing to this degree. In ER, O2 sat on RA was high 80s. After a few nebs treatments, walk test still shows O2 sat < 90% and pt still wheezing and SOB. Thus he will come in for asthma exacerbation. CXR is clear. Denies any fever, chills, sputum, hemoptysis, chest pain, nausea, vomiting nor diarrhea. No syncope He vapes. His fiance, Denae, is with him 03/04/23 Pt resting in bed. He is feeling much better today and is wanting to go home. He is not having any SOB or wheezing. He would like a home resume inhaler. He does not have a PCP and discussed offices close to where he lives. He wants to think about this. Since he has improved ok with dc today. - Vitals & Intake/Output Vital Signs: Vital Signs Temperature 95.8 F 03/04/23 06:47 Pulse Rate 95 H 03/04/23 09:17 Respiratory Rate 16 03/04/23 09:17 Blood Pressure 147/80 03/04/23 06:47 O2 Sat by Pulse Oximetry 96 03/04/23 09:17 Intake & Output: Intake & Output 03/01/23 03/02/23 03/03/23 03/04/23 11:59 11:59 11:59 11:59 Intake Total 240 Balance 240 Weight 147.1 kg - Lab Result Diagrams: 03/04/23 04:57 03/03/23 20:35 Lab Results-Last 24 Hrs: Lab Results-Last 24 Hours 03/03/23 03/03/23 03/03/23 Range/Units 20:35 20:35 20:35 WBC 12.0 H (4.0-10.5) x10^3/uL RBC 5.70 H (4.1-5.6) x10^6/uL Hgb 16.9 (12.5-18.0) g/dL Hct 49.8 (42-50) % MCV 87.4 (78-100) fL MCH 29.6 (26-32) pg MCHC 33.9 (32-36) g/dL RDW 13.2 (11.5-14.0) % Plt Count 279 (150-450) x10^3/uL MPV 11.6 H (7.5-11.0) fL Gran % 39.7 (36.0-66.0) % Immature Gran % (Auto) 0.1 (0.00-0.4) % Nucleat RBC Rel Count 0.0 (0.00-0.1) % Eos # (Auto) 0.40 (0-0.5) x10^3/uL Immature Gran # (Auto) 0.01 (0.00-0.03) x10^3u/L Absolute Lymphs (auto) 5.92 H (1.0-4.6) x10^3/uL Absolute Monos (auto) 0.87 (0.0-1.3) x10^3/uL Absolute Nucleated RBC 0.00 (0.00-0.01) x10^3u/L Lymphocytes % 49.2 H (24.0-44.0) % Monocytes % 7.2 (0.0-12.0) % Eosinophils % 3.3 (0.00-5.0) % Basophils % 0.5 (0.0-0.4) % Absolute Granulocytes 4.78 (1.4-6.9) x10^3/uL Basophils # 0.06 (0-0.4) x10^3/uL D-Dimer 0.22 (0.0-0.50) mg/L Sodium 145 (137-145) mmol/L Potassium 3.6 (3.5-5.1) mmol/L Chloride 106 (98-107) mmol/L Carbon Dioxide 28 (22-30) mmol/L Anion Gap 15.6 H (5-15) MEQ/L BUN 12 (9-20) mg/dL Creatinine 1.08 (0.66-1.25) mg/dL Estimated GFR > 60.0 ML/MIN Glucose 110 H (74-106) mg/dL Calcium 9.1 (8.4-10.2) mg/dL Total Bilirubin 0.40 (0.2-1.3) mg/dL AST 46 (17-59) U/L ALT 65 H (0-50) U/L Alkaline Phosphatase 99 (38-126) U/L Troponin I (0.000-0.034) ng/mL NT-Pro-B Natriuret Pep < 20.0 (<300) pg/mL Serum Total Protein 9.1 H (6.3-8.2) g/dL Albumin 4.7 (3.5-5.0) g/dL Influenza Type A Ag (NEGATIVE) Influenza Type B Ag (NEGATIVE) RSV (PCR) (NEGATIVE) SARS-CoV-2 (PCR) (NEGATIVE) Slides for Path Review YES 03/03/23 03/03/23 03/04/23 Range/Units 20:35 20:37 00:10 WBC (4.0-10.5) x10^3/uL RBC (4.1-5.6) x10^6/uL Hgb (12.5-18.0) g/dL Hct (42-50) % MCV (78-100) fL MCH (26-32) pg MCHC (32-36) g/dL RDW (11.5-14.0) % Plt Count (150-450) x10^3/uL MPV (7.5-11.0) fL Gran % (36.0-66.0) % Immature Gran % (Auto) (0.00-0.4) % Nucleat RBC Rel Count (0.00-0.1) % Eos # (Auto) (0-0.5) x10^3/uL Immature Gran # (Auto) (0.00-0.03) x10^3u/L Absolute Lymphs (auto) (1.0-4.6) x10^3/uL Absolute Monos (auto) (0.0-1.3) x10^3/uL Absolute Nucleated RBC (0.00-0.01) x10^3u/L Lymphocytes % (24.0-44.0) % Monocytes % (0.0-12.0) % Eosinophils % (0.00-5.0) % Basophils % (0.0-0.4) % Absolute Granulocytes (1.4-6.9) x10^3/uL Basophils # (0-0.4) x10^3/uL D-Dimer (0.0-0.50) mg/L Sodium (137-145) mmol/L Potassium (3.5-5.1) mmol/L Chloride (98-107) mmol/L Carbon Dioxide (22-30) mmol/L Anion Gap (5-15) MEQ/L BUN (9-20) mg/dL Creatinine (0.66-1.25) mg/dL Estimated GFR ML/MIN Glucose (74-106) mg/dL Calcium (8.4-10.2) mg/dL Total Bilirubin (0.2-1.3) mg/dL AST (17-59) U/L ALT (0-50) U/L Alkaline Phosphatase (38-126) U/L Troponin I < 0.012 < 0.012 (0.000-0.034) ng/mL NT-Pro-B Natriuret Pep (<300) pg/mL Serum Total Protein (6.3-8.2) g/dL Albumin (3.5-5.0) g/dL Influenza Type A Ag NEGATIVE (NEGATIVE) Influenza Type B Ag NEGATIVE (NEGATIVE) RSV (PCR) NEGATIVE (NEGATIVE) SARS-CoV-2 (PCR) NEGATIVE (NEGATIVE) Slides for Path Review 03/04/23 03/04/23 Range/Units 04:57 04:57 WBC 9.8 (4.0-10.5) x10^3/uL RBC 5.28 (4.1-5.6) x10^6/uL Hgb 15.7 (12.5-18.0) g/dL Hct 45.5 (42-50) % MCV 86.2 (78-100) fL MCH 29.7 (26-32) pg MCHC 34.5 (32-36) g/dL RDW 13.2 (11.5-14.0) % Plt Count 251 (150-450) x10^3/uL MPV 11.8 H (7.5-11.0) fL Gran % 86.5 H (36.0-66.0) % Immature Gran % (Auto) 0.2 (0.00-0.4) % Nucleat RBC Rel Count 0.0 (0.00-0.1) % Eos # (Auto) 0.01 (0-0.5) x10^3/uL Immature Gran # (Auto) 0.02 (0.00-0.03) x10^3u/L Absolute Lymphs (auto) 1.21 (1.0-4.6) x10^3/uL Absolute Monos (auto) 0.06 (0.0-1.3) x10^3/uL Absolute Nucleated RBC 0.00 (0.00-0.01) x10^3u/L Lymphocytes % 12.4 L (24.0-44.0) % Monocytes % 0.6 (0.0-12.0) % Eosinophils % 0.1 (0.00-5.0) % Basophils % 0.2 (0.0-0.4) % Absolute Granulocytes 8.43 H (1.4-6.9) x10^3/uL Basophils # 0.02 (0-0.4) x10^3/uL D-Dimer (0.0-0.50) mg/L Sodium (137-145) mmol/L Potassium (3.5-5.1) mmol/L Chloride (98-107) mmol/L Carbon Dioxide (22-30) mmol/L Anion Gap (5-15) MEQ/L BUN (9-20) mg/dL Creatinine (0.66-1.25) mg/dL Estimated GFR ML/MIN Glucose (74-106) mg/dL Calcium (8.4-10.2) mg/dL Total Bilirubin (0.2-1.3) mg/dL AST (17-59) U/L ALT (0-50) U/L Alkaline Phosphatase (38-126) U/L Troponin I < 0.012 (0.000-0.034) ng/mL NT-Pro-B Natriuret Pep (<300) pg/mL Serum Total Protein (6.3-8.2) g/dL Albumin (3.5-5.0) g/dL Influenza Type A Ag (NEGATIVE) Influenza Type B Ag (NEGATIVE) RSV (PCR) (NEGATIVE) SARS-CoV-2 (PCR) (NEGATIVE) Slides for Path Review - Radiology Exams Ordered Rad Exams-Entire Visit: Radiology Procedures Category Date Time Status CHEST 1 VIEW (PORTABLE) Stat Exams 03/03/23 21:11 Completed - Procedures and Test Procedures and Tests throughout Hospitalization: Therapy Orders & Screens 03/03/23 20:36 Respiratory Therapy Assessment DAILY Comment: 03/04/23 00:33 Smoking Cessation Education ONCE Comment: Diagnosis: SOB, asthma exacerbation Smoking Status: Current every day smoker How long have you smoked: 2 years Have you smoked in the past 12 months: Yes Do you dip or chew tobacco: No 03/04/23 03:32 Respiratory Therapy Assessment DAILY Comment: Diagnosis: SOB, asthma exacerbation Discharge Exam General Appearance: no apparent distress, alert, obese Neurologic Exam: alert, oriented x 3, cooperative, normal mood/affect, nml cerebellar function, sensation nml, No motor deficits Eye Exam: PERRL, EOMI, eyes nml inspection Ears, Nose, Throat Exam: normal ENT inspection, pharynx normal, moist mucous membranes Neck Exam: normal inspection, non-tender, supple, full range of motion Respiratory Exam: normal breath sounds, lungs clear, No respiratory distress Cardiovascular Exam: regular rate/rhythm, normal heart sounds Gastrointestinal/Abdomen Exam: soft, No tenderness, No mass Male Genitalia Exam: deferred Rectal Exam: deferred Back Exam: normal inspection, normal range of motion, No CVA tenderness, No vertebral tenderness Extremity Exam: normal inspection, normal range of motion Skin Exam: normal color, warm, dry Final Diagnosis/Problem List - Final Discharge Diagnosis/Problem (1) Respiratory distress Current Visit: Yes Status: Acute Assessment & Plan: - resolved with duonebs and steroids. Code(s): R06.03 - ACUTE RESPIRATORY DISTRESS (2) Severe asthma with exacerbation Current Visit: Yes Status: Acute Assessment & Plan: - resolved - will d/c with albuterol inhaler Code(s): J45.901 - UNSPECIFIED ASTHMA WITH (ACUTE) EXACERBATION (3) Nicotine dependence Current Visit: Yes Status: Acute Assessment & Plan: - advised cessation- pt vapes Code(s): F17.200 - NICOTINE DEPENDENCE, UNSPECIFIED, UNCOMPLICATED (4) Obesity, morbid, BMI 40.0-49.9 Current Visit: Yes Status: Acute Assessment & Plan: - advised diet and exercise control Code(s): E66.01 - MORBID (SEVERE) OBESITY DUE TO EXCESS CALORIES (5) Leukocytosis Current Visit: Yes Status: Acute Assessment & Plan: - resolved Code(s): D72.829 - ELEVATED WHITE BLOOD CELL COUNT, UNSPECIFIED - Discharge Discharge Date: 03/04/23 Disposition: Home, Self-Care Condition: Stable Prescriptions: No Action No Reportable Medications [No Reported Medications] Follow up with: VITALIY RIZZO DO [ACTIVE STAFF] - 03/08/23 9:30 am
[2023-03-04 11:46] VITALS: BP 137/72; PULSE 110; RESP 18; TEMP 98.3; O2SAT 95
== END 2023-03-04 13:16 | disposition home or self-care (01) ==
LOC: ED 20:11 → MED SURG 03-04 00:05
PROVIDERS: ADMIT Internal Medicine; ATTEND Internal Medicine
DX: R06.03 Acute respiratory distress (principal); J45.901 Unspecified asthma with (acute) exacerbation; F17.200 Nicotine dependence, unspecified, uncomplicated; E66.01 Morbid (severe) obesity due to excess calories; D72.829 Elevated white blood cell count, unspecified; Z20.828 Contact with and (suspected) exposure to other viral communicable diseases
CPT/HCPCS: 0241U; 36000; 36415; 71045; 80053; 83880; 84484; 85025; 85379; 93005; 93041; 93268; 94640; 94760; 94762; 96365; 96366; 96372; 96374; 96375; 99285; G0378; Q3014; J2930; J3475; A9270-GY

== ENCOUNTER 2023-05-06 19:35 | Emergency (ER) | payer MEDICAID, OTHER ==
--- NOTE | 2023-05-06 19:47 | ERPHSYRPT ---
- History of Present Illness Time Seen by Provider: 05/06/23 19:46 Source: patient, family, old records Exam Limitations: no limitations Physician History: This is a morbidly obese 22-year-old black male patient who does not have a primary care provider and has a history of asthma. Patient states he no longer smokes cigarettes but does occasionally smoke marijuana. He denies any other illicit drug use. He presents with worsening shortness of air and wheezing that began at 6:00 this morning. He has not had his albuterol metered-dose inhaler in approximately 2 weeks. Patient was seen here on 03/03/2023 for the same issue. He has no known exposures to individuals with similar symptoms or with known flu diagnoses. Patient denies chest pain. He denies abdominal pain. He has no vomiting or diarrhea symptoms. He presents with a room air oxygen saturation level of 95 to 96%. His respiratory rate is 24-27 respirations a minute and he is tachycardic in the 120s with sinus tach rhythm on the monitor. His systolic blood pressures in the 140s. He has had and is having coughing episodes. He has pain in his lower back on the left side that shoots down his buttock into the posterior leg (sciatica). Timing/Duration: today, worse Severity of Dyspnea-Max: mild (To moderate) Severity of Dyspnea-Current: mild (To moderate) Possible Cause: frequent episodes Modifying Factors: Improves With: coughing Associated Symptoms: cough, wheezing, No chest pain/discomfort, No calf pain, No leg swelling, No painful breathing, No productive cough Allergies/Adverse Reactions: No Known Drug Allergies Allergy (Verified 03/03/23 20:13) Hx Tetanus, Diphtheria Vaccination/Date Given: Yes Hx Influenza Vaccination/Date Given: No Hx Pneumococcal Vaccination/Date Given: No Travel Risk - International Travel Have you traveled outside of the country in past 3 weeks: No - Coronavirus Screening Are you exhibiting any of the following symptoms?: Yes Symptoms: Cough: New Onset, Shortness of Breath Close contact with a COVID-19 positive Pt in past 14-21 Days: No - Vaccine Status Have you recieved a Covid-19 vaccination: No - Review of Systems Constitutional: No Symptoms Eyes: No Symptoms Ears, Nose, & Throat: No Symptoms Respiratory: Cough, Dyspnea, Wheezing Cardiac: No Symptoms Abdominal/Gastrointestinal: No Symptoms Genitourinary Symptoms: No Symptoms Musculoskeletal: No Symptoms Skin: No Symptoms Neurological: No Symptoms Psychological: No Symptoms Endocrine: No Symptoms Hematologic/Lymphatic: No Symptoms Immunological/Allergic: No Symptoms All Other Systems: Reviewed and Negative - Past Medical History Pertinent Past Medical History: Yes Neurological History: No Pertinent History ENT History: No Pertinent History Cardiac History: No Pertinent History Respiratory History: Asthma Endocrine Medical History: No Pertinent History Musculoskeletal History: No Pertinent History GI Medical History: No Pertinent History History: No Pertinent History Psycho-Social History: No Pertinent History Male Reproductive Disorders: No Pertinent History - Past Surgical History Past Surgical History: No Neuro Surgical History: No Pertinent History Cardiac: No Pertinent History Respiratory: No Pertinent History Gastrointestinal: No Pertinent History Genitourinary: No Pertinent History Musculoskeletal: No Pertinent History Male Surgical History: No Pertinent History Other Surgical History: Pt denies any surgical history. - Social History Smoking Status: Current every day smoker How long have you smoked: 2 years Exposure to second hand smoke: No Drug Use: marijuana Patient Lives Alone: No - Nursing Vital Signs Nursing Vital Signs: Initial Vital Signs Pulse Rate 123 H 05/06/23 19:39 Respiratory Rate 27 H 05/06/23 19:39 Blood Pressure 142/95 05/06/23 19:39 O2 Sat by Pulse Oximetry 96 05/06/23 19:39 Pain Scale Pain Intensity 7 - Physical Exam General Appearance: mild distress, alert, anxiety, obese Eye Exam: PERRL/EOMI, eyes nml inspection Ears, Nose, Throat Exam: hearing grossly normal, normal ENT inspection, normal pharynx Neck Exam: normal inspection, non-tender, supple, full range of motion Respiratory Exam: respiratory distress (Mild but oxygenating fairly well), airway intact, diminished breath sounds (Diffusely), No chest tenderness, No crackles/rales, No rhonchi, No wheezing Cardiovascular/Chest Exam: tachycardia Abdominal/Gastrointestinal Exam: soft, normal bowel sounds, No tenderness Extremity Exam: non-tender Neurologic Exam: alert, oriented x 3, cooperative, 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 nml as tested, normal mood/affect, nml cerebellar function, nml station & gait, sensation nml Skin Exam: normal color, warm, dry Lymphatic Exam: No adenopathy SpO2 Interpretation: normal O2 Delivery: Room Air - Course Nursing assessment & vital signs reviewed: Yes EKG Interpreted by Me: RATE (130), Sinus Tach, NORMAL AXIS, NORMAL INTERVALS, NORMAL QRS, NORMAL ST-T, Other (No acute ischemic changes on today's twelve-lead EKG.) Ordered Tests: Active Orders 24 hr Category Date Time Status Nematology Teacher STAT Care 05/06/23 20:07 Active EKG-ER Only STAT Care 05/06/23 20:02 Active IV Insertion STAT Care 05/06/23 20:02 Active Oxygen-ED Only Nasal Cannula 2 lpm Care 05/06/23 21:18 Active Pulse Oximetry (ED) STAT Care 05/06/23 20:02 Active CHEST 1 VIEW (PORTABLE) Stat Exams 05/06/23 20:02 Taken BLOOD CULTURE Stat Lab 05/06/23 20:50 Received CBC W DIFF Stat Lab 05/06/23 20:50 Completed CMP Stat Lab 05/06/23 20:50 Completed D-DIMER QUANTITATIVE Stat Lab 05/06/23 20:50 Completed NT PRO BNPII Stat Lab 05/06/23 20:50 Completed TROPONIN Q4H Lab 05/06/23 20:50 Completed TROPONIN Q4H Lab 05/07/23 00:15 Ordered TROPONIN Q4H Lab 05/07/23 04:15 Ordered Respiratory Therapy Assessment DAILY RT 05/06/23 20:15 Completed Medication Summary Generic Name Dose Route Start Last Admin Trade Name Freq PRN Reason Stop Dose Admin Sodium Chloride 3 ml 05/06/23 20:15 05/06/23 20:16 Sodium Cl For Inhalation 3 Ml Ud Nebule IH 06/05/23 20:14 3 ml UD MARYLIN Administration Discontinued Medications Generic Name Dose Route Start Last Admin Trade Name Freq PRN Reason Stop Dose Admin Hydrocodone Bitart/Acetaminophen 10 ml 05/06/23 20:03 05/06/23 20:12 Hydrocodone/Acetaminophen 5 Ml Udcup PO 05/06/23 20:04 10 ml STAT STA Administration Hydrocodone Bitart/Acetaminophen Confirm 05/06/23 20:09 Hydrocodone/Acetaminophen 5 Ml Udcup Administered 05/06/23 20:10 Dose 10 ml .ROUTE .STK-MED ONE Methylprednisolone Sodium 0 mg 05/06/23 20:02 05/06/23 20:11 Succinate 125 mg/ Sterile IV 05/06/23 20:03 125 mg Water 2 ml STAT ONE Administration Levalbuterol HCl 1.25 mg 05/06/23 20:12 05/06/23 20:16 Levalbuterol Hcl 1.25 Mg/3 Ml Vial.Neb IH 05/06/23 20:13 1.25 mg STAT STA Administration Levalbuterol HCl Confirm 05/06/23 20:11 Levalbuterol Hcl 1.25 Mg/3 Ml Vial.Neb Administered 05/06/23 20:12 Dose 1.25 mg IH .STK-MED ONE Methylprednisolone Sodium Succinate Confirm 05/06/23 20:09 Methylprednis Sod Succ 125 Mg/2 Ml Vial Administered 05/06/23 20:10 Dose 125 mg .ROUTE .STK-MED ONE Oseltamivir Phosphate 75 mg 05/06/23 21:31 Oseltamivir 75 Mg Cap PO 05/06/23 21:32 STAT ONE Sodium Chloride Confirm 05/06/23 20:11 Sodium Cl For Inhalation 3 Ml Ud Nebule Administered 05/06/23 20:12 Dose 3 ml IH .STK-MED ONE Sterile Water Confirm 05/06/23 20:09 Water For Injection,Sterile 10 Ml Vial Administered 05/06/23 20:10 Dose 10 ml IJ .STK-MED ONE Lab/Rad Data: Laboratory Result Diagrams 05/06/23 20:50 05/06/23 20:50 Laboratory Results 05/06/23 05/06/23 05/06/23 Range/Units 20:50 20:50 20:50 WBC (4.0-10.5) x10^3/uL RBC (4.1-5.6) x10^6/uL Hgb (12.5-18.0) g/dL Hct (42-50) % MCV (78-100) fL MCH (26-32) pg MCHC (32-36) g/dL RDW (11.5-14.0) % Plt Count (150-450) x10^3/uL MPV (7.5-11.0) fL Gran % (36.0-66.0) % Immature Gran % (Auto) (0.00-0.4) % Nucleat RBC Rel Count (0.00-0.1) % Eos # (Auto) (0-0.5) x10^3/uL Immature Gran # (Auto) (0.00-0.03) x10^3u/L Absolute Lymphs (auto) (1.0-4.6) x10^3/uL Absolute Monos (auto) (0.0-1.3) x10^3/uL Absolute Nucleated RBC (0.00-0.01) x10^3u/L Lymphocytes % (24.0-44.0) % Monocytes % (0.0-12.0) % Eosinophils % (0.00-5.0) % Basophils % (0.0-0.4) % Absolute Granulocytes (1.4-6.9) x10^3/uL Basophils # (0-0.4) x10^3/uL D-Dimer 0.35 (0.0-0.50) mg/L Sodium 134 L (137-145) mmol/L Potassium 3.6 (3.5-5.1) mmol/L Chloride 101 (98-107) mmol/L Carbon Dioxide 20 L (22-30) mmol/L Anion Gap 16.3 H (5-15) MEQ/L BUN 11 (9-20) mg/dL Creatinine 0.97 (0.66-1.25) mg/dL Estimated GFR 112.5 ML/MIN Glucose 102 (74-106) mg/dL Calcium 9.1 (8.4-10.2) mg/dL Total Bilirubin 0.80 (0.2-1.3) mg/dL AST 40 (17-59) U/L ALT 37 (0-50) U/L Alkaline Phosphatase 71 (38-126) U/L Troponin I < 0.012 (0.000-0.034) ng/mL NT-Pro-B Natriuret Pep 36.8 (<300) pg/mL Serum Total Protein 8.4 H (6.3-8.2) g/dL Albumin 4.4 (3.5-5.0) g/dL Influenza Type A Ag (NEGATIVE) Influenza Type B Ag (NEGATIVE) RSV (PCR) (NEGATIVE) SARS-CoV-2 (PCR) (NEGATIVE) 05/06/23 05/06/23 Range/Units 20:50 20:30 WBC 9.5 (4.0-10.5) x10^3/uL RBC 5.35 (4.1-5.6) x10^6/uL Hgb 15.7 (12.5-18.0) g/dL Hct 46.8 (42-50) % MCV 87.5 (78-100) fL MCH 29.3 (26-32) pg MCHC 33.5 (32-36) g/dL RDW 12.8 (11.5-14.0) % Plt Count 193 (150-450) x10^3/uL MPV 12.2 H (7.5-11.0) fL Gran % 76.3 H (36.0-66.0) % Immature Gran % (Auto) 0.2 (0.00-0.4) % Nucleat RBC Rel Count 0.0 (0.00-0.1) % Eos # (Auto) 0.05 (0-0.5) x10^3/uL Immature Gran # (Auto) 0.02 (0.00-0.03) x10^3u/L Absolute Lymphs (auto) 1.23 (1.0-4.6) x10^3/uL Absolute Monos (auto) 0.92 (0.0-1.3) x10^3/uL Absolute Nucleated RBC 0.00 (0.00-0.01) x10^3u/L Lymphocytes % 12.9 L (24.0-44.0) % Monocytes % 9.7 (0.0-12.0) % Eosinophils % 0.5 (0.00-5.0) % Basophils % 0.4 (0.0-0.4) % Absolute Granulocytes 7.25 H (1.4-6.9) x10^3/uL Basophils # 0.04 (0-0.4) x10^3/uL D-Dimer (0.0-0.50) mg/L Sodium (137-145) mmol/L Potassium (3.5-5.1) mmol/L Chloride (98-107) mmol/L Carbon Dioxide (22-30) mmol/L Anion Gap (5-15) MEQ/L BUN (9-20) mg/dL Creatinine (0.66-1.25) mg/dL Estimated GFR ML/MIN Glucose (74-106) mg/dL Calcium (8.4-10.2) mg/dL Total Bilirubin (0.2-1.3) mg/dL AST (17-59) U/L ALT (0-50) U/L Alkaline Phosphatase (38-126) U/L Troponin I (0.000-0.034) ng/mL NT-Pro-B Natriuret Pep (<300) pg/mL Serum Total Protein (6.3-8.2) g/dL Albumin (3.5-5.0) g/dL Influenza Type A Ag POSITIVE (NEGATIVE) Influenza Type B Ag NEGATIVE (NEGATIVE) RSV (PCR) NEGATIVE (NEGATIVE) SARS-CoV-2 (PCR) NEGATIVE (NEGATIVE) - Progress Progress: improved, re-examined Air Movement: fair Progress Note: 05/06/23 20:40 This patient medical issues 1 of moderate complexity. Level complex in the workup performed is based on review the patient's past medical history, review of the patient's medication list, reviewed patient's drug allergy list, history of present illness and physical findings on examination. This patient's workup includes placement of intravenous line, infusion of Solu-Medrol, nebulizer with Xopenex, respiratory therapy evaluation and treatment, CBC, CMP, chest x-ray, troponin level, twelve-lead EKG and D-dimer level. 05/06/23 22:01 Patient laboratory data results were interpreted by me. Patient does have influenza A infection. This is the likely cause of his symptoms. Blood Culture(s) Obtained: Yes Counseled pt/family regarding: lab results, diagnosis, need for follow-up, rad results Medical Desision Making - Diagnostic Testing Diagnostic test were ordered, analyzed, and reviewed by me: Yes Radiological Interpretation: Interpreted by me - Risk of complications The pt has a mod risk of morbidity or mortality based on: Need for prescription drug management - Departure Clinical Impression: Influenza A H1N1 infection Condition: Stable Critical Care Time: No Referrals: DOCTOR,NO FAMILY [Primary Care Provider] - Follow up/PCP as directed Additional Instructions: Avoid exposure to any type of smoke. Use your albuterol inhaler every 4 hours while awake. Take your steroids as prescribed. Take your Tamiflu medication as prescribed. Call a primary care provider tomorrow, 05/07/2023 to make arrangements for follow-up appointment for further evaluation and management. Prescriptions: Prednisone 10 mg [Deltasone 10 mg] 10 mg PO TID #12 tablet Oseltamivir 75 mg [Tamiflu 75MG Capsule] 75 mg PO BID #10 cap Albuterol 8 gm Mdi Hfa [Ventolin Hfa MDI] 8 gm IH Q4H #1 unit
[2023-05-06] MEDS ORDERED: solu-MEDROL 125 MG, Sterile H2O 10 ml 2 ML IV ONE ×2 (20:02)
[2023-05-06] MEDS ORDERED: HYDROCODONE-ACETAMIN 2.5-108/5 ML SOLUTION PO STA (20:03)
[2023-05-06] MEDS ORDERED: Sterile H2O 10 ml IJ ONE ×2 (20:09→23:06)
[2023-05-06] MEDS ORDERED: solu-MEDROL ONE ×2 (20:09→23:06)
[2023-05-06] MEDS ORDERED: HYDROCODONE-ACETAMIN 2.5-108/5 ML SOLUTION ONE (20:09)
[2023-05-06] MEDS ORDERED: Sodium Chloride 3 ML UD NEBULES IH ONE (20:11)
[2023-05-06] MEDS ORDERED: Sodium Chloride 3 ML UD NEBULES IH SCH (20:15)
[2023-05-06 21:11] LABS: Absolute Neutrophil Ct (ANC) 7.25 x10^3/uL (1.4-6.9); BASOPHIL % 0.4 % (0.0-0.4); Basophil (Absolute #) 0.04 x10^3/uL (0-0.4); Eosinophil % 0.5 % (0.00-5.0); Eosinophil (Absolute #) 0.05 x10^3/uL (0-0.5); Hematocrit 46.8 % (42-50); Hemoglobin 15.7 g/dL (12.5-18.0); IMMATURE GRAN # 0.02 x10^3u/L (0.00-0.03); IMMATURE GRAN % 0.2 % (0.00-0.4); Lymphocyte (Absolute #) 1.23 x10^3/uL (1.0-4.6); Lymphocytes % 12.9 % (24.0-44.0); Mean Cell Volume 87.5 fL (78-100); Mean Corpuscular Hemoglobin 29.3 pg (26-32); Mean Corpuscular Hgb Concent. 33.5 g/dL (32-36); Mean Platelet Volume 12.2 fL (7.5-11.0); Monocyte (Absolute #) 0.92 x10^3/uL (0.0-1.3); Monocytes % 9.7 % (0.0-12.0); Neutrophil % 76.3 % (36.0-66.0); Platelet Count 193 x10^3/uL (150-450); Red Blood Count 5.35 x10^6/uL (4.1-5.6); Red Cell Distribution Width 12.8 % (11.5-14.0); White Blood Count 9.5 x10^3/uL (4.0-10.5)
[2023-05-06 21:26] LABS: ALBUMIN 4.4 g/dL (3.5-5.0); ANION GAP 16.3 MEQ/L (5-15); BILIRUBIN,TOTAL 0.8 mg/dL (0.2-1.3); Calcium 9.1 mg/dL (8.4-10.2); Creatinine 1 0.97 mg/dL (0.66-1.25); EST GLOMERULAR FILTRATION RATE 112.5 ML/MIN; NT PRO BNPII 36.8 pg/mL (<300); Potassium 3.6 mmol/L (3.5-5.1); Total Protein 8.4 g/dL (6.3-8.2)
[2023-05-06 21:27] LABS: INFLUENZA B NEGATIVE (NEGATIVE); RESPIRATORY SYNCTIAL VIRUS NEGATIVE (NEGATIVE); SARS-CoV-2 Xpert Express NEGATIVE (NEGATIVE)
[2023-05-06 21:28] LABS: INFLUENZA A POSITIVE (NEGATIVE)
[2023-05-06] MEDS ORDERED: Tamiflu 75MG Capsule PO ONE ×2 (21:31→22:14)
[2023-05-06 22:22] VITALS: TEMP 98.5
[2023-05-06] MEDS ORDERED: solu-MEDROL 80 MG, Sterile H2O 10 ml 2 ML IV ONE ×2 (22:56)
[2023-05-06 23:16] VITALS: BP 161/117; PULSE 117; RESP 21; O2SAT 91
--- NOTE | 2023-05-07 08:52 | XRAY ---
Indication: Cough and short of breath. Comparison: March 03, 2023 Portable chest less inflated and remains clear. Heart and mediastinal structures within normal limits. Bony thorax intact. Impression: Continued nonacute chest.
== END 2023-05-06 23:38 | disposition left against medical advice (07) ==
LOC: ED 19:35
DX: J10.1 Influenza due to other identified influenza virus with other respiratory manifestations (principal); R06.02 Shortness of breath; R05.9 Cough, unspecified; M54.32 Sciatica, left side; Z79.52 Long term (current) use of systemic steroids; Z28.310 Unvaccinated for COVID-19
CPT/HCPCS: 0241U; 36000; 36415; 71045; 80053; 83880; 84484; 85025; 85379; 87040; 93005; 93041; 94640; 94760; 96374; 96376; 99284; J2930; J7614; A9270-GY